=== PATIENT | female | born 1975 | race African-American/Black ===

== ENCOUNTER 2016-07-26 18:56 | Emergency (ER) | payer OTHER ==
[2016-07-26 19:00] VITALS: BP 135/84; PULSE 69; TEMP 98; BMI 32.1
--- NOTE | 2016-07-26 19:58 | PDOC ---
History of Present Illness - General Chief Complaint: Pain Stated Complaint: STOMACH BLEEDING Time Seen by Provider: 07/26/16 19:09 - History of Present Illness Initial Comments: 07/26/16 20:07 CHIEF COMPLAINT: bleeding from belly button HISTORY OF PRESENT ILLNESS: 41 yo F with hx of umbilical hernia repair (2015) presents to fast track with bleeding from umbilicus earlier today. Patient states she "just noticed a little blood when I was wiping my hand across my stomach." She denies any pain, nausea, vomiting, diarrhea, fever, or chills. No recent travel or sick contacts. PAST MEDICAL HISTORY: Denies past medical history FAMILY HISTORY: Denies SOCIAL HISTORY: Denies tobacco, alcohol, illicit drug use. SURGICAL HISTORY: Denies ALLERGIES: No known drug allergies REVIEW OF SYSTEMS General/Constitutional: Denies fever or chills. Denies weakness, weight change. HEENT: Denies change in vision. Denies ear pain or discharge. Denies sore throat. Cardiovascular: Denies chest pain or shortness of breath. Respiratory: Denies cough, wheezing, or hemoptysis. Gastrointestinal: Denies nausea, vomiting, diarrhea or constipation. Denies rectal bleeding. Genitourinary: Denies dysuria, frequency, or change in urination. Musculoskeletal: Denies joint or muscle swelling or pain. Denies neck or back pain. Skin:"A little bleeding from my belly button." Denies rash or easy bruising. PHYSICAL EXAM General Appearance: Well-appearing, appropriately dressed. No apparent distress , no intoxication. HEENT: EOMI, PERRLA, normal ENT inspection, normal voice, TMs normal, pharynx normal. No conjunctival pallor. No photophobia, scleral icterus. Respiratory/Chest: Lungs CTAB. Cardiovascular: RRR. S1, S2. Gastrointestinal/Abdominal: Normal bowel sounds. Abdomen soft, non-distended. No tenderness or rebound tenderness. No organomegaly, pulsatile mass, guarding, hernia, hepatomegaly, splenomegaly. Musculoskeletal/Extremities: Normal inspection. FROM of all extremities, normal capillary refill. Pelvis Stable. No CVA tenderness. No tenderness to extremities, pedal edema, swelling, erythema or deformity. Integumentary: Dried blood to umbilicus, no bleeding at this time. No erythema , swelling, wamrth, discharge appreciated. Appropriate color, dry, warm. No cyanosis, erythema, jaundice or rash Neurologic: writer editor II-XII intact. Fully oriented, alert. Appropriate mood/affect. Motor strength 5/5. No appreciable EOM palsy, facial droop or sensory deficit. Past History - Past Medical History Allergies/Adverse Reactions: Allergies Allergy/AdvReac Type Severity Reaction Status Date / Time No Known Allergies Allergy Verified 07/26/16 19:00 Home Medications: Ambulatory Orders NK [No Known Home Medication] 07/26/16 Suicide Attempt (Hx): No - Surgical History Abdominal Surgery: Yes (HERNIA REPAIR) - Psycho/Social/Smoking Cessation Hx Anxiety: No Suicidal Ideation: No Smoking History: Never smoked Hx Alcohol Use: No Drug/Substance Use Hx: No Substance Use Type: None *Physical Exam - Vital Signs Last Vital Signs Temp Pulse Resp BP Pulse Ox 98.0 F 69 20 135/84 100 07/26/16 18:57 07/26/16 18:57 07/26/16 18:57 07/26/16 18:57 07/26/16 18:57 Medical Decision Making - Medical Decision Making 41 yo F with hx of umbilical hernia repair (2014)presents to fast track with bleeding from umbilicus earlier today. No bleeding appreciated on exam, at this time patient has no complaints of pain. ADvised patient to f/u with surgeon who performed procedure, patient states she does not want to f/u with that surgeon and prefers to f/u with her GI doctor. Advised patient to f/u within 1-2 days and of signs and symptoms for return to ER. Patient verbalized understanding and agrees to plan. *DC/Admit/Observation/Transfer Diagnosis at time of Disposition: Umbilical bleeding - Discharge Dispostion Disposition: HOME Condition at time of disposition: Good Admit: No - Referrals Referrals: Darryl Elmore MD [Staff Physician] - - Patient Instructions Printed Discharge Instructions: DI for Post-Surgical Bleeding Additional Instructions: As discussed, please follow up with Dr. Elmore. If you develop any fever, nausea, vomiting, diarrhea, or redness/swelling/warmth/discharge from your belly button, please return to the ER.
== END 2016-07-26 20:18 | disposition home or self-care (01) ==
LOC: JERFT 18:56 → JER 18:56 → JERFT 20:18
DX: R58 Hemorrhage, not elsewhere classified (principal)
CPT/HCPCS: 99281-25